=== PATIENT | female | born 1955 | race Caucasian/White ===

== ENCOUNTER → 2018-12-31 | Outpatient (CLI) | payer OTHER ==
--- NOTE | 2019-01-01 11:11 | MM ---
Reason for exam: screening (asymptomatic). Last mammogram was performed 3 years ago. History: Patient is postmenopausal and had first child at age 32. Took progesterone for 6 years beginning at age 51. Physical Findings: A clinical breast exam by your physician is recommended on an annual basis and results should be correlated with mammographic findings. MG 3D Screening Mammo W/Cad Bilateral CC and MLO view(s) were taken. Prior study comparison: January 14, 2016, bilateral MG 3d screening mammo w/cad. The breast tissue is heterogeneously dense. This may lower the sensitivity of mammography. No significant changes when compared with prior studies. ASSESSMENT: Negative, BI-RAD 1 RECOMMENDATION: Routine screening mammogram of both breasts in 1 year.
== END | disposition home or self-care (01) ==
LOC: RADMAMWWP 16:18
PROVIDERS: ATTEND Family Medicine
DX: Z12.31 Encounter for screening mammogram for malignant neoplasm of breast (principal)
CPT/HCPCS: 77063; 77067

== ENCOUNTER 2019-01-18 06:46 | Day surgery (SDC) | payer OTHER ==
[2019-01-16 15:57] VITALS: BMI 23.9
[2019-01-18 07:11] VITALS: TEMP 98
[2019-01-18] MEDS ORDERED: LACTATED RINGERS 1,000 ML IV ONE (07:14)
[2019-01-18] MEDS ORDERED: PROPOFOL 10 MG/ML 20 ML VIAL IV ONE (07:32)
--- NOTE | 2019-01-18 07:57 | P.PCN ---
Date of Procedure: 01/18/19 Procedure(s) Performed: BRIEF HISTORY: Patient is a 63-year-old pleasant female, scheduled for an elective colonoscopy as a part of screening for colorectal neoplasia. Last colonoscopy was 12 years ago PROCEDURE PERFORMED: Colonoscopy. PREOPERATIVE DIAGNOSIS: Screening for colon cancer. IV sedation per Anesthesia. PROCEDURE: After informed consent was obtained, the patient, was brought into the endoscopy unit. IV sedation was administered by Anesthesia under continuous monitoring. Digital rectal examination was normal. Initially the Olympus CF-160 flexible video colonoscope was then inserted in the rectum, gradually advanced into the cecum without any difficulty. Careful examination was performed as the scope was gradually being withdrawn. Ileocecal valve and the appendiceal orifice were visualized and appeared normal. Prep was excellent. Mucosa of the cecum, ascending colon, transverse colon, descending colon, sigmoid colon, and rectum appeared normal. Retroflexion was performed in the rectum and no lesions were seen. The patient tolerated the procedure well. IMPRESSION: Normal-appearing colon from rectum to cecum no evidence of colorectal neoplasia. RECOMMENDATIONS: Findings of this examination were discussed with the patient as well as a family. She was advised to have a repeat screening colonoscopy in 10 years.
[2019-01-18 08:44] VITALS: BP 183/95; PULSE 68; RESP 18
== END 2019-01-18 09:02 | disposition home or self-care (01) ==
LOC: ORWHC2ENDO 06:46
PROVIDERS: ATTEND Internal Medicine Gastroenterology
DX: Z12.11 Encounter for screening for malignant neoplasm of colon (principal); J45.909 Unspecified asthma, uncomplicated; E07.9 Disorder of thyroid, unspecified; Z79.890 Hormone replacement therapy; Z79.899 Other long term (current) drug therapy
CPT/HCPCS: J2704; G0121; 45378

== ENCOUNTER → 2020-04-15 | Outpatient (CLI) | payer MEDICARE | END | disposition home or self-care (01) | LOC: LABWHC1 11:02 | PROVIDERS: ATTEND Family Medicine | DX: Z20.828 Contact with and (suspected) exposure to other viral communicable diseases (principal) | CPT/HCPCS: U0003; C9803 ==

== ENCOUNTER → 2022-07-20 | Outpatient (CLI) | payer MEDICARE ==
--- NOTE | 2022-07-20 15:22 | P.SLEEP ---
History of Present Illness DATE: 07/20/2022 CONSULTATION/NEW PATIENT EVALUATION HISTORY OF PRESENT ILLNESS/SLEEP-WAKE EVALUATION: 66year old lady gentleman had been evaluated in the sleep center for significant excessive daytime sleepiness possible obstructive sleep apnea hypopnea syndrome. SLEEP SCHEDULE: Usually sleep schedule on weekdays from 10 PM to 5 AM, during days off from 10 PM to 6:30 AM. FALLING ASLEEP: Sometimes there is a problems with falling asleep, although no TV in bedroom. DURING SLEEP: Patient usually sleeps on the side position. No clear information about snoring. Patient wakes up from sleep up to 5 times with one episode of nocturia. Positive history of hot flashes during the sleep and significant amount of movements. Positive history of clenching teeth. Patient is using oral appliances to prevent clinching. No history of hypnogogical hallucinations, sleep paralysis, or cataplexy. DURING THE DAY/WAKE STATE: In the morning patient wake up tired, has episodes of sleepiness. [place] sleepiness scale is increased to 10. Patient may take several naps during the week usually around to 24 PM. PAST MEDICAL HISTORY: Hypothyroidism secondary to thyroidectomy for goiter, ALLERGY, menopause with hot flashes. PAST SURGICAL HISTORY: Thyroidectomy for goiter 90% of thyroid have been removed, tubal ligation. MEDICATIONS: Synthroid 88 g once a day, modafinil 200 mg as needed, Zyrtec. SOCIAL HISTORY: Negative for smoking, alcohol consumption occasional. FAMILY HISTORY: Heart problems, thyroid problems. REVIEW OF SYSTEMS: Multiple awakenings from sleep, sleepiness during the day. No fevers. No double vision. No recent chest pain. No shortness of breath. No abdominal pain. No bleeding episodes. No blood in urine. No seizure episodes. PHYSICAL EXAMINATION: GENERAL: A pleasant patient without any distress. VITAL SIGNS: BP 121/95 , HR 66 , RR 16 , weight 159 pounds, height 5 foot 6-3/4 inches, body mass index 25.2 . HEENT: PERRLA, EOMI. Evaluation of oropharynx showed tongue protrudes midline, low position of soft palate Mallampati2-3. Retrognathia several millimeters NECK: Supple. No JVD. Thyroid is not palpable. 13 inches in circumference. LUNGS: Clear to percussion and to auscultation. Good air exchange. No wheezing or rhonchi. HEART: S1, S2 regular. No murmurs, gallops or rubs. ABDOMEN: Soft and nontender. Bowel sounds are present. No organomegaly appreciated. EXTREMITIES: No clubbing or cyanosis. LEVEE SUPERINTENDENT: Awake, alert, and oriented x3. Cranial nerves 2 to 7 intact. There is no fasciculation or atrophy noted. No focal deficits observed. ASSESSMENT: 1. Awakenings from sleep up to 5 times, moderately low position of soft palate, retrognathia, menopause, sleepiness. Possibly obstructive sleep apnea hypopnea syndrome. 2. Sleepiness. Differential diagnosis include the idiopathic hypersomnia and narcolepsy without cataplexy. 3 menopause with hot flashes. 4. Hypothyroidism secondary to 90% thyroidectomy for goiter. 5 ALLERGY. 6. Status post tubal ligation. 7. Significant amount of movements during the sleep rule out periodic limb movements. PLAN: 1. Polysomnography for evaluation of patient's breathing during sleep, to check for leg movements with fallowing multiple sleep latency test if sleep study is negative for physical abnormalities of sleep. 2. CPAP/BiPAP titration if sleep study confirms obstructive sleep apnea- hypopnea syndrome. 3. Preferable position during sleep on the side. 4. No driving if patient feels any sleepiness. Patient is aware of civil and criminal liability for unsafe driving. 5. Sleep hygiene with regular sleep time for at least 7.5-8 hours. Thank you very much for referring this patient for consultation. Sincerely, Delroy Machado MD, PhD, FAASM. Diplomat of [place] [employer], Sleep Medicine Board by [employer] Director [facility] [place] Past Medical History Past Medical History: Asthma, Thyroid Disorder History of Any Multi-Drug Resistant Organisms: None Reported Past Surgical History: Tubal Ligation Additional Past Surgical History / Comment(s): partial thyroidectomy, aixa oophorectomy Past Anesthesia/Blood Transfusion Reactions: No Reported Reaction Past Alcohol Use History: Occasional Past Drug Use History: None Reported - Past Family History Mother Family Medical History: No Reported History Medications and Allergies Home Medications Medication Instructions Recorded Confirmed Type Levothyroxine Sodium [Synthroid] 100 mcg PO DAILY 01/16/19 01/18/19 History Liothyronine Sodium [Cytomel] 10 mcg PO DAILY 01/16/19 01/18/19 History Magnesium 200 mg PO DAILY 01/16/19 01/18/19 History Turmeric Root Extract [Turmeric] 500 mg PO DAILY 01/16/19 01/18/19 History Allergies Allergy/AdvReac Type Severity Reaction Status Date / Time No Known Allergies Allergy Verified 01/16/19 15:38 Sleep Note - Sleep Note Sleep Note: Temperature: Pulse Rate: Respiratory Rate: Blood Pressure: SpO2: Height: Weight: BMI: Neck Circumference:
== END | disposition home or self-care (01) ==
LOC: SLEEP 14:35
PROVIDERS: ATTEND Internal Medicine
DX: Z53.9 Procedure and treatment not carried out, unspecified reason (principal)